=== PATIENT | female | born 1980 | race Caucasian/White ===

== ENCOUNTER 2017-04-30 02:30 | Emergency (ER) | payer SELFPAY ==
[~2017-04-30] VITALS: Ht 160 cm; Wt 81.6 kg
[~2017-04-30 02:30] MED LIST: Z.0.PAXIL40 MG
--- OUTSIDE RECORDS SUMMARY | 2017-04-30 02:32 | XMS REPORT ---
Author Author [facility] Address Unknown Phone Unavailable Care Team Providers Care Flush Tester Name Role Phone UNKNOWN, REFFERING PP Unavailable NADYA POLLOCK M.D. Unavailable Unavailable Problems This patient has no known problems. Allergies, Adverse Reactions, Alerts This patient has no known allergies or adverse reactions. Medications This patient has no known medications.
--- OUTSIDE RECORDS SUMMARY | 2017-04-30 02:32 | XMS REPORT | Clinical Summary ---
Author Author [facility] Address Unknown Phone Unavailable Care Team Providers Care Ram Car Operator Name Role Phone Shelby Simpson MD PCP Allergies Active Allergy Reactions Severity Noted Date Comments Dicyclomine Hives High 09/17/2015 Morphine 12/21/2016 Pantoprazole Hives High 09/17/2015 Ketorolac Anaphylaxis High 09/17/2015 Current Medications Prescription Sig. Disp. Refills Start End Date Status Date sertraline (ZOLOFT) 100 Take 100 mg by mouth Active MG tablet daily. hydrOXYzine (VISTARIL) 25 Take 25 mg by mouth 3 Active MG capsule (three) times a day as needed for itching. clonAZEPAM (KlonoPIN) 0.5 09/15/19 12/22/19 Discontin MG tablet 16 17 ued PARoxetine (PAXIL) 40 MG Take 40 mg by mouth every 12/22/19 Discontin tablet morning. 17 ued HYDROcodone-acetaminophen TAKE 1 TABLET BY MOUTH 0 09/13/19 12/22/19 Discontin (NORCO 10-325) 10-325 mg EVERY 4 TO 6 HOURS 16 17 ued per tablet NEEDED FOR PAIN acetaminophen-codeine Take 1 tablet by mouth 10 tablet 0 09/05/19 (TYLENOL WITH CODEINE #3) every 6 (six) hours as 17 17 300-30 mg per tablet needed for moderate pain for up to 3 days. ciprofloxacin (CIPRO) 500 Take 1 tablet (500 mg 14 tablet 0 12/23/19 12/30/19 MG tablet total) by mouth 2 (two) 17 17 times a day for 7 days. phenazopyridine Take 1 tablet (200 mg 6 tablet 0 12/23/19 12/26/19 (PYRIDIUM) 200 MG tablet total) by mouth 3 (three) 17 17 times a day for 3 days. Active Problems Problem Noted Date Flank pain 09/17/2015 Hematuria 09/17/2015 Drug-seeking behavior 09/17/2015 Encounters Date Type Specialty Care Team Description 12/23/2016 Emergency Emergency Medicine Divya Durham, FLAME HARDENER-C Cystitis , acute - Amilcar Navarrete DO hemorrhagic (Primary Dx) 12/24/2016 12/21/2016 Emergency Emergency Medicine Ginny García, FLAME HARDENER-C Acute cystitis with - David Membreno MD hematuria (Primary Dx) 12/22/2016 09/04/2016 Emergency Emergency Medicine Jeramie Billings, Flank pain (Primary Dx); - Hematuria 09/05/2016 after 04/29/2016 Family History Medical History Relation Name Comments Hypertension Father Diabetes Mother Hyperlipidemia Mother Hypertension Mother Relation Name Status Comments Father Alive Mother Alive Social History Tobacco Use Types Packs/Day Years Used Date Current Every Day Smoker Cigarettes 0.5 Started: 1998 Alcohol Use Drinks/Week oz/Week Comments Yes rarely once a year Sex Assigned at Date Recorded Not on file Last Filed Vital Signs Vital Sign Reading Time Taken Blood Pressure 121/73 12/24/2016 12:45 AM CDT Pulse 91 12/24/2016 12:45 AM CDT Temperature 37 C (98.6 F) 12/23/2016 11:30 PM CDT Respiratory Rate 16 12/24/2016 12:45 AM CDT Oxygen Saturation 97% 12/24/2016 12:45 AM CDT Inhaled Oxygen - - Concentration Weight 77.1 kg (170 lb) 12/23/2016 11:30 PM CDT Height 160 cm (5' 3") 12/23/2016 11:30 PM CDT Body Mass Index 30.11 12/23/2016 11:30 PM CDT Plan of Treatment Health Maintenance Due Date Last Done Comments PAP SMEAR 11/02/2003 INFLUENZA VACCINE 09/22/2016 Results * Urinalysis screen and microscopy, with reflex to culture (12/23/2016 11:40 PM) Only the most recent of 3 results within the time period is included. Component Value Ref Range Specimen site Clean catch Color, UA Red Appearance, UA Slightly-Cloudy Specific gravity, UA 1.013 1.001 - 1.035 pH, UA 5.0 5.0 - 8.5 Protein, UA 1+ (A) Negative Glucose, UA Negative Negative Ketones, UA Negative Negative Bilirubin, UA Negative Negative Blood, UA Large (A) Negative Nitrite, UA Negative Negative Urobilinogen, UA Negative <2.0 Leukocyte esterase, UA Negative Negative Epithelial cells, UA Many /HPF Round epithelial cells, Few 0 - 1 /HPF UA WBC, UA 0-5 0 - 4 /HPF RBC, UA 0-5 0 - 2 /HPF Bacteria, UA Trace None seen Yeast, UA None seen Yeast with pseudohyphae, None seen UA Amorphous crystals Few Specimen Performing Laboratory Urine [facility] DEPARTMENT OF PATHOLOGY AND GENOMIC MEDICINE [address] [place] [address] * Estimated GFR (12/23/2016 11:40 PM) Only the most recent of 3 results within the time period is included. Component Value Ref Range GFR Non Af Amer 82 mL/min/1.73 m2 GFR Af Amer >90 mL/min/1.73 m2 Comment: Chronic kidney disease: <60 mL/min/1.73m2 Kidney failure: <15 mL/min/1.73m2 The estimated GFR is calculated from the IDMS-traceable Modification of Diet in Renal Disease Equation. The accuracy of the calculation is poor when the creatinine is normal. Calculated values >90 mL/min/1.73m2 are not reported. This equation has not been validated in children (<18 years), women, the elderly (>70 years), or ethnic groups other than Caucasians and Americans. Specimen Performing Laboratory Plasma specimen [facility] OF PATHOLOGY AND GENOMIC [address] [place] [address] * CBC with platelet and differential (12/23/2016 11:40 PM) Only the most recent of 3 results within the time period is included. Component Value Ref Range WBC 6.70 4.50 - 11.00 k/uL RBC 3.14 (L) 4.20 - 5.50 m/uL HGB 11.3 (L) 12.0 - 16.0 g/dL HCT 32.6 (L) 37.0 - 47.0 % MCV 103.8 (H) 82.0 - 100.0 fL MCH 36.0 (H) 27.0 - 34.0 pg MCHC 34.7 31.0 - 37.0 g/dL RDW - SD 49.1 37.0 - 55.0 fL MPV 8.3 (L) 8.8 - 13.2 fL Platelet count 240 150 - 400 k/uL Nucleated RBC 0.00 /100 WBC Neutrophils 52.7 39.0 - 69.0 % Lymphocytes 34.0 25.0 - 45.0 % Monocytes 8.4 0.0 - 10.0 % Eosinophils 4.0 0.0 - 5.0 % Basophils 0.6 0.0 - 1.0 % Immature granulocytes 0.3Comment: "Immature granulocytes" 0.0 - 1.0 % (promyelocytes, myelocytes, metamyelocytes) Specimen Performing Laboratory Blood [facility] DEPARTMENT OF PATHOLOGY AND [facility] MEDICINE [address] [place] [address] * hCG qualitative, serum screen (12/23/2016 11:40 PM) Component Value Ref Range hCG qualitative, serum Negative Specimen Performing Laboratory Blood [facility] DEPARTMENT OF PATHOLOGY AND [facility] [address] [place] [address] * Lactic acid level (12/23/2016 11:40 PM) Only the most recent of 2 results within the time period is included. Component Value Ref Range Lactic acid 0.9 0.5 - 2.2 mmol/L Specimen Performing Laboratory Plasma specimen [facility] PATHOLOGY AND [facility] [address] [place] [address] * Comprehensive metabolic panel (12/23/2016 11:40 PM) Only the most recent of 3 results within the time period is included. Component Value Ref Range Sodium 139 135 - 148 mEq/L Potassium 4.0 3.5 - 5.0 mEq/L Chloride 104 98 - 112 mEq/L CO2 20 (L) 24 - 31 mEq/L Anion gap 15 7 - 15 mEq/L Comment: Starting from May , anion gap calculation no longer incorporates potassium. Please note the change. BUN 14 6 - 20 mg/dL Creatinine 0.8 0.5 - 0.9 mg/dL Glucose 121 (H) 65 - 99 mg/dL Calcium 9.0 8.3 - 10.2 mg/dL Protein 7.1 6.3 - 8.3 g/dL Comment: 4.6-7.0 g/dL 1 week 4.4-7.6 g/dL 7 months-1year 5.1-7.3 g/dL 1-2 years 5.6-7.5 g/dL >3 years 6.0-8.0 g/dL 18-150 6.3-8.3 g/dL Albumin 4.2 3.5 - 5.0 g/dL A/G ratio 1.4 0.7 - 3.8 Alkaline phosphatase 97 35 - 104 U/L AST 16 10 - 35 U/L ALT 9 5 - 50 U/L Total bilirubin 0.2 0.0 - 1.2 mg/dL Specimen Performing Laboratory Plasma specimen [facility] DEPARTMENT OF PATHOLOGY AND GENOMIC MEDICINE [address] [place] [address] * CT Abdomen Pelvis Wo Contrast (12/22/2016 12:53 AM) Specimen Performing Laboratory [facility] [address] [place] [address] Narrative EXAMINATION:CT ABDOMEN PELVIS WO CONTRAST CLINICAL HISTORY:KIDNEY STONE TECHNIQUE: Multiple axial images of the abdomen and pelvis were obtained without intravenous administration of iodinated contrast. Sagittal and coronal computerized reformatted images were also obtained. The lack of intravenous contrast reduces the sensitivity of detecting solid organ disease. CT imaging was performed with iterative reconstruction technique and/or automated exposure control to reduce radiation dose. COMPARISON:09/04/2016 IMPRESSION: Trace bilateral pleural effusions. Airspace infiltration of the left lower lobe is seen, compatible with low-grade infectious or inflammatory infiltrate. Liver, gallbladder, spleen, pancreas, adrenal glands are normal. Kidneys, ureters are normal. Mild wall thickening of the bladder is seen, consider cystitis or muscular hypertrophy. No free intraperitoneal fluid or air. Arising from the left ovary, there is a 1.6 x 1.9 cm simple cyst. Appendix is normal. No gastrointestinal tract obstruction. No acute osseous abnormalities. Conclusion: Airspace infiltration of left lower lobe is compatible with low-grade infectious or inflammatory infiltrate. Mild wall thickening of the bladder is seen, consider cystitis or muscular hypertrophy. A 1.6 x 1.9 cm simple cyst is seen of the left ovary. [facility]-[id number] Procedure Note Interface, Radiology Results Incoming - 12/22/2016 1:20 AM CDT EXAMINATION: CT ABDOMEN PELVIS WO CONTRAST CLINICAL HISTORY: KIDNEY STONE TECHNIQUE: Multiple axial images of the abdomen and pelvis were obtained without intravenous administration of iodinated contrast. Sagittal and coronal computerized reformatted images were also obtained. The lack of intravenous contrast reduces the sensitivity of detecting solid organ disease. CT imaging was performed with iterative reconstruction technique and/or automated exposure control to reduce radiation dose. COMPARISON: 09/04/2016 IMPRESSION: Trace bilateral pleural effusions. Airspace infiltration of the left lower lobe is seen, compatible with low-grade infectious or inflammatory infiltrate. Liver, gallbladder, spleen, pancreas, adrenal glands are normal. Kidneys, ureters are normal. Mild wall thickening of the bladder is seen, consider cystitis or muscular hypertrophy. No free intraperitoneal fluid or air. Arising from the left ovary, there is a 1.6 x 1.9 cm simple cyst. Appendix is normal. No gastrointestinal tract obstruction. No acute osseous abnormalities. Conclusion: Airspace infiltration of left lower lobe is compatible with low-grade infectious or inflammatory infiltrate. Mild wall thickening of the bladder is seen, consider cystitis or muscular hypertrophy. A 1.6 x 1.9 cm simple cyst is seen of the left ovary. [facility]-[id number] * Partial thromboplastin time, activated (12/21/2016 11:53 PM) Only the most recent of 2 results within the time period is included. Component Value Ref Range PTT 35.8 23.0 - 36.0 sec Comment: PTT therapeutic range for unfractionated heparin is 61.0-112.0 seconds which corresponds to Anti-Xa 0.3-0.7 U/ml. Specimen Performing Laboratory Blood [facility] DEPARTMENT OF PATHOLOGY AND [facility] [id number] [place] [address] [place] [address] * Prothrombin time with INR (12/21/2016 11:53 PM) Only the most recent of 2 results within the time period is included. Component Value Ref Range Prothrombin time 12.0 12.0 - 15.0 sec INR 0.9 Comment: The International Normalized Ratio (INR) is a therapeutic monitoring tool for patients who are stable on oral anticoagulant therapy. An INR of 2.0-3.0 is suggested for deep vein thrombosis/pulmonary embolism. Specimen Performing Laboratory Blood [facility] DEPARTMENT OF PATHOLOGY AND GENOMIC MEDICINE [id number] [place] [address] [place] [address] * Amylase level (12/21/2016 11:53 PM) Component Value Ref Range Amylase 31 13 - 73 U/L Specimen Performing Laboratory Plasma specimen [facility] DEPARTMENT OF PATHOLOGY AND GENOMIC MEDICINE [address] [place] [address] * hCG qualitative, urine screen (12/21/2016 11:47 PM) Only the most recent of 2 results within the time period is included. Component Value Ref Range hCG qualitative, urine Negative Negative Comment: The manufacturers stated sensitivity of HcG test for serum is >/=10 mIU/ml and urine is >/=20mIU/ml. Specimen Performing Laboratory Urine [facility] DEPARTMENT OF PATHOLOGY AND GENOMIC MEDICINE [address] [place] [address] * Gram stain (12/21/2016 11:47 PM) Only the most recent of 2 results within the time period is included. Component Value Ref Range Gram stain result Occasional WBC's Many Gram variable rods Comment: Specimen Information Specimen Source: Urine Specimen Site: Clean catch Specimen Performing Laboratory Urine [facility] DEPARTMENT OF PATHOLOGY AND [facility] MEDICINE [address] [place] [address] * Urine culture (12/21/2016 11:47 PM) Only the most recent of 2 results within the time period is included. Component Value Ref Range Urine culture isolate Mixed Gram positive silvana 10-3 cfu/ml (A) Comment: Specimen Information Specimen Source: Urine Specimen Site: Clean catch Specimen Performing Laboratory Urine [facility] DEPARTMENT OF PATHOLOGY AND [facility] MEDICINE [address] [place] [id number] * CT Renal Stone Protocol (09/04/2016 9:17 PM) Specimen Performing Laboratory [facility] [address] [place] [id number] Narrative EXAMINATION:CT RENAL STONE PROTOCOL CLINICAL HISTORY: 35 years FemaleABDOMINAL PAIN, left flank pain COMPARISON:10/02/2014 TECHNIQUE:CT of the abdomen and pelvis without intravenous contrast. Absence of intravenous contrast decreases sensitivity for detection of focal lesions and vascular pathology. CT imaging was performed with iterative reconstruction techniques and/or automated exposure control to reduce radiation dose. FINDINGS: LOWER THORAX: 1. Lung bases are clear. ABDOMEN: 1.There are no urinary tract calculi. There is no hydronephrosis. The unenhanced kidneys are unremarkable. 2.Unenhanced liver, gallbladder, spleen, adrenal glands, pancreas are unremarkable. 3.Absence of enteric contrast decreases sensitivity for bowel pathology. The colon is redundant. There is no obstruction. A normal appendix is visualized. 4.The abdominal aorta is nonaneurysmal. There is no abdominal adenopathy or ascites. No free air. PELVIS: 1.Pelvic structures are not well evaluated on this nonenhanced CT scan. Ultrasound could be obtained as indicated clinically. There is no pelvic fluid or adenopathy. 2.No acute osseous abnormalities. IMPRESSION: 1.No renal calculi or hydronephrosis. 2.Additional findings as detailed above. [facility]-[id number] Procedure Note [facility], Radiology Results Incoming - 09/04/2016 9:31 PM CDT EXAMINATION: CT RENAL STONE PROTOCOL CLINICAL HISTORY: 35 years Female ABDOMINAL PAIN, left flank pain COMPARISON: 10/02/2014 TECHNIQUE: CT of the abdomen and pelvis without intravenous contrast. Absence of intravenous contrast decreases sensitivity for detection of focal lesions and vascular pathology. CT imaging was performed with iterative reconstruction techniques and/or automated exposure control to reduce radiation dose. FINDINGS: LOWER THORAX: 1. Lung bases are clear. ABDOMEN: 1. There are no urinary tract calculi. There is no hydronephrosis. The unenhanced kidneys are unremarkable. 2. Unenhanced liver, gallbladder, spleen, adrenal glands, pancreas are unremarkable. 3. Absence of enteric contrast decreases sensitivity for bowel pathology. The colon is redundant. There is no obstruction. A normal appendix is visualized. 4. The abdominal aorta is nonaneurysmal. There is no abdominal adenopathy or ascites. No free air. PELVIS: 1. Pelvic structures are not well evaluated on this nonenhanced CT scan. Ultrasound could be obtained as indicated clinically. There is no pelvic fluid or adenopathy. 2. No acute osseous abnormalities. IMPRESSION: 1. No renal calculi or hydronephrosis. 2. Additional findings as detailed above. [facility]-[id number] after 04/29/2016 Insurance Payer Benefit Subscriber ID Type Phone Address Plan / Group MEDICAID MEDICAID xxxxxxxxx Medicaid
[2017-04-30] MEDS ORDERED: ONDANSETRON HCL INJ 2 MG/ML VIAL IV STA (02:53)
[2017-04-30] MEDS ORDERED: FENTANYL CITRATE/PF 100MCG/2 ML INJ IV ONE ×3 (03:00→03:45)
[2017-04-30] MEDS ORDERED: CEFAZOLIN SOD 1 GM/NS 50ML 50 ML IV ONE (03:00)
[2017-04-30] MEDS ORDERED: PROMETHAZINE HCL (IM) 25 MG/ML VIAL IM ONE (04:30)
[2017-04-30] MEDS ORDERED: CEFAZOLIN SOD 500 MG VIAL IM SCH (04:30)
[2017-04-30] MEDS ORDERED: FENTANYL CITRATE/PF 100MCG/2 ML INJ IJ ONE (04:30)
== END 2017-04-30 04:50 | disposition left against medical advice (07) ==
LOC: FSED 02:30
DX: M54.41 Lumbago with sciatica, right side (principal); R11.2 Nausea with vomiting, unspecified; R10.30 Lower abdominal pain, unspecified; R31.9 Hematuria, unspecified; N20.0 Calculus of kidney; F17.210 Nicotine dependence, cigarettes, uncomplicated
CPT/HCPCS: 99283; J2405

== ENCOUNTER 2019-01-22 01:52 | Emergency (ER) | payer SELFPAY ==
[~2019-01-22] VITALS: Ht 160 cm; Wt 81.6 kg
--- OUTSIDE RECORDS SUMMARY | 2019-01-22 01:56 | XMS REPORT | Summary of Care ---
Author Author [facility] - [facility] Organization [facility] - [facility] Address Unknown Phone Unavailable Care Team Providers Care Lab Tech Name Role Phone Pcp, Patient Does Not Have A PCP Reason for Referral * MRI/CAT Scan (EVETTE) Referred By Contact Referred To Contact Status Reason Specialty Diagnoses / Procedures Felix Miner, [facility] [address] [place] [address] New Request Diagnostic Diagnoses Radiology Right flank pain P rocedures CT ABDOMEN PELVIS WO CONTRAST * MRI/CAT Scan (EVETTE) Referred By Contact Referred To Contact Status Reason Specialty Diagnoses / Procedures Felix Miner, [employer] [address] [place] [address] New Request Diagnostic Diagnoses Radiology Right flank pain P rocedures CT ABDOMEN PELVIS WO CONTRAST Reason for Visit * Reason Comments Flank Pain * Auth/Cert Referred By Contact Referred To Contact Status Reason Specialty Diagnoses / Procedures [facility] [address] [place] [phone] Emergency Medicine Encounter Details Care Team Description Date Type Department Felix Miner [employer] [address] [place] [address] Right flank pain (Primary Dx) 11/06/2018 Emergency [facility] [address] [place] [phone] Allergies Comments Active Allergy Reactions Severity Noted Date Dicyclomine Hcl Anxiety 01/26/2007 Morphine Itching 11/26/2016 Nsaids (Non-Steroidal Shortness of 12/29/2016 Anti-Inflammatory Drug) Breath Pantoprazole Sodium Hives 01/14/2007 Ketorolac Tromethamine Itching 01/14/2007 documented as of this encounter (statuses as of 11/06/2018) Medications End Date Status Medication Sig Dispensed Refills Start Date Active acetaminophen-codeine Take 1-2 12 tablet 0 300-30 mg tablet tablets by 8 mouth every 6 (six) hours as needed for Pain (scale 1-3). Active SERTraline 100 mg tablet Take 150 mg 0 by mouth daily. Active ondansetron (ZOFRAN ODT Take by 0 ORAL) mouth. Active acetaminophen-codeine Take 1 tablet 12 tablet 0 300-30 mg by mouth 9 tabletIndications: RUQ every 4 abdominal pain (four) hours as needed for Pain (scale 7-10). Active ondansetron (ZOFRAN) 4 mg Take 1 tablet 10 tablet 0 tabletIndications: by mouth 9 Abdominal pain, every 6 (six) unspecified abdominal hours as location needed for Nausea and Vomiting (N/V). Active acetaminophen-codeine Take 1 tablet 10 tablet 0 (TYLENOL-CODEINE #3) by mouth 9 300-30 mg every 6 (six) tabletIndications: hours as Abdominal pain, needed for unspecified abdominal Pain (scale location 7-10). Active traMADOL 50 mg Take 1 tablet 12 tablet 0 tabletIndications: Right by mouth 9 lower quadrant abdominal every 6 (six) pain, Abdominal hours as distention, Nausea and needed for vomiting in adult patient Pain (scale 7-10). Active proMETHazine 25 mg Take 1 tablet 12 tablet 0 tabletIndications: Nausea by mouth 9 and vomiting in adult every 6 (six) patient hours as needed for Nausea and Vomiting (N/V). documented as of this encounter (statuses as of 11/06/2018) Active Problems Problem Noted Date Drug-seeking behavior 01/11/2018 Flank pain 05/05/2015 Hematuria 05/05/2015 UTI in , antepartum, second trimester 04/12/2015 Rh negative state in antepartum period, second trimester, fetus 1 04/08/2015 Overview: O neg IAT neg 03/2015 will need RhoGam at 28 weeks O neg; IAT + Anti D on 01/2015; Rho Joanne given 11/2014 History of nephrolithiasis 04/08/2015 Antepartum anemia in second trimester 04/08/2015 Supervision of high risk in second trimester 04/01/2015 Previous delivery affecting 04/01/2015 Overview: Due to pyelo caused contractions with decelerations to per patient. 04/18/15-Op report from CLR reviewed-Had LTCS at 35w3d for vaginal bleeding and labor. Placenta was sent to path and was noted with chorionitis,deciduitis and infarct. documented as of this encounter (statuses as of 11/06/2018) Resolved Problems Problem Noted Date Resolved Date Back pain complicating , unspecified trimester 04/12/2015 05/05/2015 Nephrolithiasis 04/09/2015 05/05/2015 with flank pain, antepartum 04/08/2015 04/09/2015 21 weeks gestation of 04/01/2015 04/08/2015 Rh negative status during , antepartum, second trimester, not 04/01/2015 04/09/2015 applicable or unspecified fetus Pyelonephritis 04/20/2013 04/09/2015 Drug-seeking behavior 04/14/2012 05/03/2015 Persistent vomiting 02/21/2008 04/08/2015 Chronic pain syndrome 08/04/2007 04/09/2015 Overview: Suspect drug-seeking behavior. documented as of this encounter (statuses as of 11/06/2018) Immunizations Name Administration Dates Next Due PPD (TB) 04/08/2013 Rho (d) Immune Globulin 12/11/2014 Td 01/03/2018 () documented as of this encounter Social History Date Tobacco Use Types Packs/Day Years Used 04/08/2000 - 11/22/2014 Current Every Day Smoker Cigarettes 0.5 19 Smokeless Tobacco: Never Used Drinks/Week oz/Week Comments Alcohol Use 0 Standard drinks or equivalent 0.0 socially Yes Sex Assigned at Date Recorded Not on file Industry Job Start Date Occupation Not on file Not on file Not on file Travel End Travel History Travel Start No recent travel history available. documented as of this encounter Last Filed Vital Signs Reading Time Taken Comments Vital Sign 144/93 11/06/2018 7:50 PM CDT Blood Pressure 117 11/06/2018 7:50 PM CDT Pulse 36.7 C (98.1 F) 11/06/2018 7:50 PM CDT Temperature 18 11/06/2018 7:50 PM CDT Respiratory Rate 99% 11/06/2018 7:50 PM CDT Oxygen Saturation - - Inhaled Oxygen Concentration 71.7 kg (158 lb) 11/06/2018 7:48 PM CDT Weight - - Height 27.99 04/03/2017 9:51 PM [employer] Body Mass Index documented in this encounter Plan of Treatment Date/Time Name Type Priority Associated Diagnoses 11/06/2018 10:[address] ABDOMEN PELVIS WO IMAGING EVETTE Right flank pain CONTRAST Order Schedule Name Type Priority Associated Diagnoses ONCE for 1 Occurrences starting 11/06/2018 until 11/06/2018 CT ABDOMEN PELVIS WO IMAGING EVETTE Right flank pain CONTRAST Health Maintenance Due Date Last Done Comments PNEUMOCOCCAL 0-64 YEARS 1988 COMBINED SERIES (1 of 1 - PPSV23) DTaP,Tdap,and Td Vaccines 2001 (1 - Tdap) PAP SMEAR 04/08/2018 04/08/2015 INFLUENZA VACCINE (#1) 2018 documented as of this encounter Procedures Comments Procedure Name Priority Date/Time Associated Diagnosis POCT TEST EVETTE 11/06/2018 Right flank pain 9:07 PM CDT CBC WITH DIFFERENTIAL STAT 11/06/2018 Right flank pain 9:03 PM CDT URINALYSIS STAT 11/06/2018 Right flank pain 9:03 PM CDT CBC WITH DIFF Routine 11/06/2018 Right flank pain 9:03 PM CDT COMP. METABOLIC PANEL STAT 11/06/2018 Right flank pain (33605) 9:03 PM CDT LIPASE STAT 11/06/2018 Right flank pain 9:03 PM CDT documented in this encounter Results * POCT TEST (11/06/2018 9:07 PM CDT) POCT PREG negative On board present controls acceptable with C Line POCT PREG LOT # [id number] POCT PREG TEST 08-22-2019 DATE Specimen Urine - URINE, CLEAN CATCH * CBC WITH DIFFERENTIAL (11/06/2018 9:03 PM CDT) WBC 6.39 4.30 - 11.10 [facility] 10*3/L SERVICES RBC 3.37 (L) 3.93 - 5.25 10*6/L [facility] HGB 11.3 (L) 11.6 - 15.0 g/dL [facility] HCT 34.5 (L) 35.7 - 45.2 % [facility] MCV 102.4 (H) 80.6 - 95.5 fL [facility] MCH 33.5 (H) 25.9 - 32.8 pg [facility] MCHC 32.8 31.6 - 35.1 g/dL [facility] RDW-SD 50.3 (H) 39.0 - 49.9 fL [facility] RDW-CV 13.2 12.0 - 15.5 % [facility] PLT 254 166 - 358 10*3/L [facility] MPV 8.5 (L) 9.5 - 12.9 fL [facility] NRBC/100 WBC 0.0 0.0 - 10.0 /100 WBCs [facility] NRBC x10^3 <0.01 10*3/L [facility] GRAN MAT (NEUT) 53.0 % [facility] % SERVICES IMM GRAN % 0.20 % [facility] LYMPH % 34.6 % [facility] MONO % 9.2 % [facility] EOS % 2.5 % [facility] BASO % 0.5 % [facility] GRAN MAT 3.39 1.88 - 7.09 10*3/uL [facility] x10^3(ANC) SERVICES IMM GRAN x10^3 <0.03 0.00 - 0.06 10*3/uL [facility] LYMPH x10^3 2.21 1.32 - 3.29 10*3/uL [facility] MONO x10^3 0.59 0.33 - 0.92 10*3/uL [facility] EOS x10^3 0.16 0.03 - 0.39 10*3/uL [facility] BASO x10^3 0.03 0.01 - 0.07 10*3/uL [facility] Specimen Blood - VENOUS Performing Organization Address City/State/Zipcode Phone Number [facility] CLIA: [id number], [address] [place] [address] [facility] * URINALYSIS (11/06/2018 9:03 PM CDT) APPEARANCE Cloudy (A) Clear [facility] COLOR Yellow Yellow [facility] PH 5.0 4.8 - 8.0 [facility] SP GRAVITY 1.042 (H) 1.003 - 1.030 [facility] GLU U QUAL Normal Normal [facility] BLOOD 3+ (A) Negative [facility] KETONES Negative Negative [facility] PROTEIN Negative Negative [facility] UROBILIN Normal Normal [facility] BILIRUBIN Negative Negative [facility] NITRITE Negative Negative [facility] LEUK YUMIKO 25/uL (A) Negative [facility] RBC/HPF >182 (H) 0 - 3 HPF [facility] WBC/HPF 17 (H) 0 - 5 HPF [facility] BACTERIA Negative Negative [facility] MUCOUS Slight (A) Negative LPF [facility] SQ EPITH 25 (H) <=2 HPF [facility] Specimen Urine - URINE, CLEAN CATCH Performing Organization Address [facility] Phone Number [facility] CLIA: [id number], [address] [place] [address] [facility] * LIPASE (11/06/2018 9:03 PM CDT) LIPASE 89 0 - 220 U/L [facility] Specimen Blood - VENOUS Performing Organization Address [facility] Phone Number [facility] CLIA: [id number], [address] [place] [address] [facility] * COMP. METABOLIC PANEL (68458) (11/06/2018 9:03 PM CDT) NA 137 135 - 145 mmol/L [facility] K 5.0Comment: Slight hemolysis 3.5 - 5.0 mmol/L [facility] CL 108 98 - 108 mmol/L [facility] CO2 TOTAL 21 (L) 23 - 31 mmol/L [facility] AGAP 8 2 - 16 [facility] BUN 12Comment: Slight hemolysis 7 - 23 mg/dL [facility] GLUCOSE 92 70 - 110 mg/dL [facility] CREATININE 0.51 0.50 - 1.04 mg/dL [facility] TOTAL BILI 0.6 0.1 - 1.1 mg/dL [facility] CALCIUM 9.3 8.6 - 10.6 mg/dL [facility] T PROTEIN 7.3 6.3 - 8.2 g/dL [facility] ALBUMIN 4.2 3.5 - 5.0 g/dL [facility] ALK PHOS 91Comment: Slight hemolysis 34 - 122 U/L [facility] ALT(SGPT) 13Comment: Slight hemolysis 9 - 51 U/L [facility] AST(SGOT) 44 (H)Comment: Slight 13 - 40 U/L [facility] hemolysis SERVICES eGFR 136.5 mL/min/1.73m2 [facility] Calculation SERVICES (Non-) eGFR 165.4 mL/min/1.73m2 [facility] Calculation SERVICES () Specimen Blood - VENOUS Narrative Performed At Association of Glomerular Filtration Rate (GFR) and Staging of Kidney Disease* [facility] + + + + SERVICES | GFR (mL/min/1.73 m2)| With Kidney Damage|Without Kidney Damage + + + + |>90|Stage one| Normal + + + + |60-89|Stage two| Decreased GFR + + + + |30-59|Stage three| Stage three + + + + |15-29|Stage four | Stage four + + + + |<15 (or dialysis)|Stage five | Stage five + + + + *Each stage assumes the associated GFR level has been in effect for at least three months.Stages 1 to 5, with or without kidney disease, indicate chronic kidney disease. Notes: Determination of stages one and two (with eGFR >59mL/min/1.73 m2) requires estimation of kidney damage for at least three months as defined by structural or functional abnormalities of the kidney, manifested by either: Pathological abnormalities or Markers of kidney damage (including abnormalities in the composition of the blood or urine or abnormalities in imaging tests). Performing Organization Address City/State/Zipcode Phone Number [facility] CLIA: [id number], [address] [place] [address] [facility] documented in this encounter Visit Diagnoses Diagnosis Right flank pain - Primary Abdominal pain, unspecified site documented in this encounter Administered Medications Action Date Dose Rate Site Medication Order MAR Action 11/06/2018 9:07 PM CDT 50 mcg FENTanyl PF (SUBLIMAZE (PF)) injection Given 50 mcg 50 mcg, Slow IV Push, ONCE, 1 dose, 11/06/18 at 2130, STAT 11/06/2018 9:07 PM CDT 4 mg ondansetron (ZOFRAN (PF)) injection 4 mg Given 4 mg, Slow IV Push, ONCE, 1 dose, 11/06/18 at 2130, EVETTE documented in this encounter Insurance Type Payer Benefit Subscriber ID Effective Phone Address Plan / Dates Group Pending MEDICAID PENDING MEDICAID PENDING 2018- [facility] [place] [address] documented as of this encounter"
--- NOTE | 2019-01-22 02:30 | NUR ---
MULT ATTEMPTS TO START IV, UNSUCCESSFUL, DR LEE AWARE. PT REQUESTING PAIN MEDICATIONS, STATES SHE CAN TAKE FENTANYL.
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
== END 2019-01-22 03:13 | disposition left against medical advice (07) ==
LOC: FSED 01:52
DX: R11.2 Nausea with vomiting, unspecified (principal); R10.9 Unspecified abdominal pain; F11.90 Opioid use, unspecified, uncomplicated
CPT/HCPCS: 80307; 81003; 99282